=== PATIENT | female | born 1960 | race Caucasian/White ===

== ENCOUNTER 2016-12-20 10:53 | Inpatient (IN) ==
[2016-12-20] MEDS ORDERED: Ondansetron 4 MG/2 ML VIAL IVP ONE (10:55)
[2016-12-20] MEDS ORDERED: 0.9 % Sodium Chloride 1,000 ML IVC ONE ×2 (10:55→12:17)
[2016-12-20] MEDS ORDERED: *HR* HYDROmorphone (PF) 1 MG/ML SYRINGE IVP ONE ×2 (10:55→11:47)
--- NOTE | 2016-12-20 11:05 | Emergency Department Note ---
Disposition Clinical Impression: Large cell neuroendocrine carcinoma, Renal colic, Ureteral stone with hydronephrosis, Intractable pain Disposition: Admitted As Inpatient Condition: Fair Time of Disposition: 13:57 General Adult HPI - General Chief complaint: ED Abdominal Pain Stated complaint: "Pain around R kidney" Time Seen by Provider: 12/20/16 10:55 Source: patient, EMS Mode of arrival: EMS Limitations: no limitations Nursing Notes Reviewed: Yes Vital Signs Reviewed: Yes - History of Present Illness HPI Narrative: 56-year-old female with past medical history of diagnosed colon cancer in for 1 year currently undergoing chemotherapy presents the ED with abdominal pain also right flank pain. States she woke up with this pain all of a sudden. This is worse pain she has ever had. Patient is currently undergoing chemotherapy and sees Dr. Vega. Patient is a little nauseous and has vomited but it was nonbloody nonbilious. When she got up helped her to the commode and noticed there was blood in the commode she said that she had a bowel movement that he only saw a urine and there was blood in there. She is not known to have any bloody urine. She has had no fevers, chest pain, shortness of breath, headaches, blurry vision, pain or tingling going down the arms or legs, pain with urination or pain with defecation. Patient otherwise has no complaints. She had her last CT scan done approximate 2 weeks ago. She is very taken oxycodone and morphine at home and unable to control her pain. Patient otherwise having no complaints. - Related Data Home Medications Medication Instructions Recorded Confirmed DULoxetine [Cymbalta] 30 mg PO DAILY 12/20/16 12/20/16 Levothyroxine [Synthroid] 112 mcg PO DAILY 12/20/16 12/20/16 Morphine Sulfate [Argelia] 1 cap PO DAILY 12/20/16 12/20/16 Oxycodone HCl [Oxycodone HCl ER] 30 mg PO Q3H PRN 12/20/16 12/20/16 Sennosides/Docusate Sodium [Colace 1 tab PO DAILY PRN 12/20/16 12/20/16 2-in-1 Tablet] Allergies Allergy/AdvReac Type Severity Reaction Status Date / Time oxaliplatin Allergy Difficulty Verified 12/20/16 11:10 Breathing Review of Systems: 10 point review of systems done and negative unless otherwise stated in history of present illness. All systems ED: reviewed and negative except as stated. Review of Systems: As Per HPI Past Medical History - Past Medical History Attestation: Yes The following information was validated with the patient. Medical history: Reports: cancer Surgical history: Reports: cholecystectomy, colectomy Psychiatric history: Reports: anxiety - Social History Smoking Status: Never smoker Smokeless Tobacco Status: No Alcohol use: Reports: none Drug use: Reports: none Physical Exam - General Limitations: no limitations General appearance: alert, in no apparent distress - Head Head exam: atraumatic, normocephalic, normal inspection - Eye Eye exam: Present: normal appearance, PERRL, EOMI - ENT ENT exam: normal exam, normal oropharynx, mucous membranes moist - Neck Neck exam: Present: normal inspection, full ROM, trachea midline - Chest Chest inspection: Present: normal inspection, symmetric chest wall rise - Respiratory Respiratory exam: Present: normal lung sounds bilaterally - Cardiovascular Cardiovascular exam: Present: regular rate, normal rhythm, normal heart sounds - Abdominal Exam Abdominal exam: Present: soft, tenderness, normal bowel sounds, mass (Elbow mass on the left side of abdomen. Nonpulsatile). Absent: distention, guarding , rebound, rigidity, trauma, Garcia's sign, Rovsing's sign, tenderness at McBurney's Point, bruit, pulsatile mass, hernia, scar Abdominal tenderness: Present: diffuse, severe - Extremities Exam Extremities exam: Present: normal inspection, full ROM. Absent: tenderness, pedal edema - Expanded Lower Extremity Exam Neurovascular/Tendon exam: Absent: motor deficit, sensory deficit, tendon deficit - Back Exam Back exam: Present: normal inspection, full ROM, CVA tenderness (L). Absent: tenderness - Neurological Exam Neurological exam: Present: alert, oriented X3 - Skin Skin exam: Present: warm, dry, intact, normal color Course Course Narrative: 56-year-old female presents to the ED complaining of abdominal pain and right flank pain. She does have known colon cancer and is currently undergoing chemotherapy. We will treat her pain and nausea with Dilaudid and Zofran. We will get a CT of her abdomen and pelvis without contrast as this could be a kidney stone. We basically lives including CBC, CMP, lipase, lactate. We will give her 1 L of fluids. Patient's THIS plan. - Reevaluation(s) Reevaluation #1: came out saying that her pain is not being controlled after 2 mg of Dilaudid. This time we will change to 50 g of fentanyl to see if that helps with her pain. - Consultations Consultation #1: Spoke with the urologist Dr. Hines who agreed to see the patient he said there is nothing else needed to be done at this time of emergency department. Time: 13:55 Consultation #2: Spoke with the hospitalist Dr. Amaya who agreed to accept the patient to their service. Time: 13:55 Vital Signs Temperature 97.4 F L 12/20/16 11:15 Pulse Rate 84 12/20/16 11:15 Respiratory Rate 18 12/20/16 11:15 Blood Pressure 121/79 12/20/16 11:15 O2 Sat by Pulse Oximetry 97 12/20/16 11:15 Temperature 97.4 F L 12/20/16 11:15 Pulse Rate 88 12/20/16 12:58 Respiratory Rate 20 12/20/16 12:58 Blood Pressure 125/77 12/20/16 12:58 O2 Sat by Pulse Oximetry 99 12/20/16 12:58 Oxygen Delivery Oxygen Delivery Room Air Medical Decision Making - MDM Narrative Medical decision making narrative: 56-year-old female presents to the ED complaining of right flank abdominal pain. Patient does have a history of colon cancer. She does see Dr. Beyer and up at [facility]. She is very taken morphine and oxycodone that she has at home is not controlling the pain. did say he noticed some blood in her urine. At this time when she came in we got basic laboratories were talking back normal except for positive blood in the urine. Erythema is unchanged from her previous labs. We did do a CT angioma of her abdomen and pelvis because of the pain that she was having we are worried about possibly aortic dissection. This came back only showing a right-sided 3 mm ureteral stone. With hydronephrosis. Her cancer was unchanged based on CT. Prior to getting this Read back we had given her 2 mg of Dilaudid and 100 g of fentanyl. This is not controlling her pain. Upon the reading coming back we then tried Toradol to see if that helps with the pain and it did help quite a bit. At this time spoke with the patient on admission she states that she would rather be admitted here she is from the area rather than going up to [facility] as this is an acute renal colic problem. I spoke with the hospitalist who did agree to admit the patient for renal colic and intractable pain. Patient is admitted in stable condition. Her pain is beginning to get under control I did consult with urology and spoke with Dr. Bell who said he would see the patient when she is to the floor. Abdomen/Pelvis CTA 12/20/16 12:13 IMPRESSION: 1. There is moderate right-sided hydronephrosis and hydroureter secondary to an obstructing 3 mm right ureterovesical junction stone which is new. 2. There are multifocal metastatic lesions noted in the lungs, liver, left rectus abdominis muscle, retroperitoneum, presacral soft tissues, left pelvic sidewall, and deep within the pelvis, not appreciably changed. D/ / 12/20/2016 13:18:45 Tejinder Bustos MD / bcarter Interpreting Provider: Tejinder Bustos MD - Medical Records Medical records reviewed: Yes I reviewed the patient's medical records. - Lab Data Lab results reviewed: Yes I reviewed the patient's lab results. Result diagrams: 12/20/16 11:11 12/20/16 11:11 Lab Results 12/20/16 12/20/16 12/20/16 Range/Units 11:11 11:11 11:11 WBC 7.7 (4.3-11.1) K/mcL RBC 4.14 (3.82-4.97) M/mcL Hgb 12.6 (11.5-15.4) g/dL Hct 37.9 (35.3-44.9) % MCV 91.5 (83.0-100.0) fL MCH 30.4 (28.0-33.3) pg MCHC 33.2 (31.6-35.5) g/dL RDW 15.8 H (11.5-14.5) % Plt Count 171 (140-400) K/mcL MPV 9.1 L (9.4-12.4) fL Immature Gran % 0.9 (0-4) % Seg Neutrophils % 59.6 % Lymphocytes % 26.2 % Monocytes % 8.3 % Eosinophils % 4.7 % Basophils % 0.3 % Neutrophils # 4.6 (1.6-8.9) K/mcL Lymphocytes # 2.0 (0.6-4.6) K/mcL Monocytes # 0.6 (0.0-1.3) K/mcL Eosinophils # 0.4 (0.0-0.6) K/mcL Basophils # 0.0 (0.0-0.2) K/mcL Sodium 136 (136-145) mEq/L Potassium 3.4 L (3.5-4.5) mEq/L Chloride 100 (98-109) mEq/L Carbon Dioxide 22 (19-29) mEq/L BUN 12 (7-20) mg/dL Creatinine 1.09 (0.57-1.11) mg/dL Est GFR ( Amer) > 60 (> 60) Est GFR (Non-Af Amer) 52 L (> 60) BUN/Creatinine Ratio 11 (6-26) Glucose 124 H (70-99) mg/dL Calculated Osmolality 283 (280-300) Lactic Acid 3.3 H (0.5-2.2) mmol/L Calcium 9.6 (8.6-10.8) mg/dL Total Bilirubin 0.5 (0.2-1.2) mg/dL Direct Bilirubin 0.3 (0.0-0.5) mg/dL Indirect Bilirubin 0.2 (0.0-1.2) mg/dL AST 48 H (5-34) Units/L ALT 21 (0-55) Units/L Alkaline Phosphatase 140 H (38-126) Units/L Serum Total Protein 7.2 (6.0-8.3) g/dL Albumin 3.3 L (3.5-5.0) g/dL Globulin 3.9 H (2.4-3.5) g/dL Albumin/Globulin Ratio 0.8 L (1.1-2.2) Lipase 37 (8-78) Units/L Urine Color (Yellow) Urine Clarity (Clear) Urine pH (5.0-8.0) pH Units Ur Specific Orchard (1.010-1.025) Urine Protein (Neg-Trace) mg/dL Urine Glucose (UA) (Normal) mg/dL Urine Ketones (Negative) mg/dL Urine Blood (Negative) Urine Nitrite (Negative) Urine Bilirubin (Negative) Urine Urobilinogen (Normal) mg/dL Ur Leukocyte Esterase (Negative) Ur Culture Indicated? (NO) 12/20/16 Range/Units 11:15 WBC (4.3-11.1) K/mcL RBC (3.82-4.97) M/mcL Hgb (11.5-15.4) g/dL Hct (35.3-44.9) % MCV (83.0-100.0) fL MCH (28.0-33.3) pg MCHC (31.6-35.5) g/dL RDW (11.5-14.5) % Plt Count (140-400) K/mcL MPV (9.4-12.4) fL Immature Gran % (0-4) % Seg Neutrophils % % Lymphocytes % % Monocytes % % Eosinophils % % Basophils % % Neutrophils # (1.6-8.9) K/mcL Lymphocytes # (0.6-4.6) K/mcL Monocytes # (0.0-1.3) K/mcL Eosinophils # (0.0-0.6) K/mcL Basophils # (0.0-0.2) K/mcL Sodium (136-145) mEq/L Potassium (3.5-4.5) mEq/L Chloride (98-109) mEq/L Carbon Dioxide (19-29) mEq/L BUN (7-20) mg/dL Creatinine (0.57-1.11) mg/dL Est GFR ( Amer) (> 60) Est GFR (Non-Af Amer) (> 60) BUN/Creatinine Ratio (6-26) Glucose (70-99) mg/dL Calculated Osmolality (280-300) Lactic Acid (0.5-2.2) mmol/L Calcium (8.6-10.8) mg/dL Total Bilirubin (0.2-1.2) mg/dL Direct Bilirubin (0.0-0.5) mg/dL Indirect Bilirubin (0.0-1.2) mg/dL AST (5-34) Units/L ALT (0-55) Units/L Alkaline Phosphatase (38-126) Units/L Serum Total Protein (6.0-8.3) g/dL Albumin (3.5-5.0) g/dL Globulin (2.4-3.5) g/dL Albumin/Globulin Ratio (1.1-2.2) Lipase (8-78) Units/L Urine Color Yellow (Yellow) Urine Clarity Clear (Clear) Urine pH 7.5 (5.0-8.0) pH Units Ur Specific Orchard 1.016 (1.010-1.025) Urine Protein Negative (Neg-Trace) mg/dL Urine Glucose (UA) Normal (Normal) mg/dL Urine Ketones Trace H (Negative) mg/dL Urine Blood Negative (Negative) Urine Nitrite Negative (Negative) Urine Bilirubin Negative (Negative) Urine Urobilinogen Normal (Normal) mg/dL Ur Leukocyte Esterase Negative (Negative) Ur Culture Indicated? NO (NO) - Radiology Data Radiology results reviewed: Yes I reviewed the patient's radiology results. Attestation Statement - Attestation Attestation: I examined this patient and my medical decision-making was reviewed with the Resident Physician, Dr. Muse. I agree with the documented findings, disposition and treatment plan as described except to the extent set forth below. Patient is 56-year-old white female with history of metastatic colon CA is been undergoing chemotherapy for approximately the past year, receiving oncology care from [facility]. Patient awoke this morning with sudden onset of right flank pain and right-sided abdominal pain with nausea vomiting. Patient was reporting sharp intense pain at the onset, associated with reported as blood in the urine. Patient denies any fevers or chills, no dysuria or difficulty urinating. Patient arrives hemodynamically stable with severe right flank pain. I agree with the patient's physical exam findings as documented. Patient was placed on a cardiac tech, continuous pulse ox, labs were drawn and sent as well as urinalysis and patient underwent CT scanning with contrast due to acute onset and pain and known metastatic disease. Patient with blood in the urine on urinalysis without infection. Patient on CT with a known kidney stone with moderate [place] the right kidney. On prior CT imaging her stone was within the kidney but she is currently passing at at this time. I discussed the results with family and recommended admission for pain control and patient requests to stay here to D not since she is not having any complications with her known metastatic disease. The hospitalist who accepted the patient for admission and urology, Dr. Mateo Hassan was consulate from the ED as well.
[2016-12-20 11:21] LABS: Basophils % 0.3 %; Eosinophils # 0.4 K/mcL (0.0-0.6); Eosinophils % 4.7 %; Hematocrit 37.9 % (35.3-44.9); Hemoglobin 12.6 g/dL (11.5-15.4); Immature Granulocytes % 0.9 % (0-4); Lymphocytes % 26.2 %; Mean Corpuscular HGB Conc 33.2 g/dL (31.6-35.5); Mean Corpuscular Hemoglobin 30.4 pg (28.0-33.3); Mean Corpuscular Volume 91.5 fL (83.0-100.0); Mean Platelet Volume 9.1 fL (9.4-12.4); Monocytes # 0.6 K/mcL (0.0-1.3); Monocytes % 8.3 %; Neutrophils # 4.6 K/mcL (1.6-8.9); Platelet Count 171 K/mcL (140-400); Red Blood Count 4.14 M/mcL (3.82-4.97); Red Cell Distribution Width 15.8 % (11.5-14.5); Segmented Neutrophils % 59.6 %
[2016-12-20 11:27] LABS: Bilirubin,Urine Negative (Negative); Blood,Urine Negative (Negative); Clarity,Urine Clear (Clear); Color,Urine Yellow (Yellow); Glucose,Urine (UA) Normal (Normal); Ketones,Urine Trace mg/dL (Negative); Leukocyte Esterase,Urine Negative (Negative); Nitrite,Urine Negative (Negative); PH,Urine 7.5 pH Units (5.0-8.0); Protein,Urine Negative (Neg-Trace); Specific Gravity,Urine 1.016 (1.010-1.025); Urobilinogen,Urine Normal (Normal)
[2016-12-20 11:34] LABS: Alanine Aminotransferase 21 Units/L (0-55); Albumin 3.3 g/dL (3.5-5.0); Albumin/Globulin Ratio 0.8 (1.1-2.2); Alkaline Phosphatase 140 Units/L (38-126); Aspartate Amino Transferase 48 Units/L (5-34); BUN/Creatinine Ratio 11 (6-26); Bilirubin,Direct 0.3 mg/dL (0.0-0.5); Bilirubin,Indirect 0.2 mg/dL (0.0-1.2); Bilirubin,Total 0.5 mg/dL (0.2-1.2); Blood Urea Nitrogen 12 mg/dL (7-20); Calcium 9.6 mg/dL (8.6-10.8); Carbon Dioxide 22 mEq/L (19-29); Chloride 100 mEq/L (98-109); Globulin 3.9 g/dL (2.4-3.5); Glucose 124 mg/dL (70-99); Lipase 37 Units/L (8-78); Osmolality,Calculated 283 (280-300); Potassium 3.4 mEq/L (3.5-4.5); Sodium 136 mEq/L (136-145); Total Protein 7.2 g/dL (6.0-8.3); eGFR For African Americans > 60 (> 60); eGFR For Non-African Americans 52 (> 60)
[2016-12-20] MEDS ORDERED: *HR* HYDROmorphone (PF) 1 MG/ML SYRINGE ONE (11:35)
[2016-12-20] MEDS ORDERED: *HR* FentaNYL (PF) 100 MCG/2 ML VIAL IVP ONE ×2 (11:46→12:43)
[2016-12-20] MEDS ORDERED: *HR* FentaNYL (PF) 100 MCG/2 ML VIAL ONE (12:43)
[2016-12-20] MEDS ORDERED: Ketorolac 30 MG/ML VIAL IVP ONE (13:12)
--- NOTE | 2016-12-20 14:11 | Urology - Consult Note ---
Date of Encounter: 12/20/16 Time of Encounter: 14:08 - Assessment and Plan (1) Ureteral stone with hydronephrosis Current Visit: Yes Status: Acute Assessment and plan: Patient be brought in for observation through hospitalist service. Continue with IV fluids. Hopeful medical expulsion therapy tonight. NUTRITION MANAGER after midnight for possible stone extraction tomorrow. Urology CN:HPI Consult date: 12/20/16 Reason for consult Urology: Other (right ureteral stone) Requesting physician: Francisco Muse History of present illness: Merle is a 56-year-old female with a history of metastatic cancer currently undergoing chemotherapy at [facility]. Patient presents today secondary to severe right-sided flank pain and was found to have a distal [address] scan. Patient has multiple metastatic lesions throughout her abdomen. Patient's pain is currently okay controlled with IV pain medicine. Past Med Surg Social Fam HX - Past Medical History Medical history: cancer Psychiatric history: anxiety - Past Surgical History Surgical History: cholecystectomy, colectomy - Social History Smoking Status: Never smoker Smokeless Tobacco Status: No Alcohol use: none Drug use: none Medications and Allergies Loperamide [Imodium] 2 mg PO AD PRN #60 capsule 01/04/16 [Rx] Prochlorperazine Maleate [Compazine] 10 mg PO Q6HR PRN #60 tablet 01/04/16 [Rx] Capecitabine [Xeloda] 1,500 mg PO AD #84 tablet 01/11/16 [Rx] Lidocaine/Prilocaine CREAM [Emla] 1 appl TP AD #1 tube 01/25/16 [Rx] Ondansetron [Zofran] 8 mg PO Q8HR PRN #45 tablet 01/25/16 [Rx] Oxycodone HCl/Acetaminophen [Percocet 5-325 mg Tablet] 1 each PO Q6H PRN #30 tablet 01/25/16 [Rx] Dexamethasone [Decadron] 4 mg PO DAILY #2 tab 02/08/16 [Rx] Ibuprofen [Motrin] 200 mg PO AD PRN 02/29/16 [History] Cyclobenzaprine [Flexeril] 5 mg PO HS #3 tablet 09/23/16 [Rx] Diclofenac Potassium 50 mg PO TID PRN #20 tablet 09/23/16 [Rx] PredniSONE [Aimee] 5 mg PO DAILY 6 Days tablet. 09/23/16 [Rx] 3 Allergy/AdvReac Type Severity Reaction Status Date / Time oxaliplatin Allergy Difficulty Verified 12/20/16 11:10 Breathing Review of Systems - Constitutional no chills - EENT Nose, mouth and throat: no dizziness - Cardiovascular no chest pain - Respiratory no cough - Gastrointestinal abdominal pain Exam Initial Vital Signs Temp Pulse Resp BP Pulse Ox 97.4 F L 84 18 121/79 97 12/20/16 11:15 12/20/16 11:15 12/20/16 11:15 12/20/16 11:15 12/20/16 11:15 - General physical appearance Present: well developed - Respiratory Present: normal respiratory effort - Cardiovascular Cardiovascular exam IM: RRR - Abdomen Abdomen: Present: soft Urology Results - Labs 12/20/16 11:11 12/20/16 11:11 Abnormal lab results RDW 15.8 % (11.5-14.5) H 12/20/16 11:11 MPV 9.1 fL (9.4-12.4) L 12/20/16 11:11 Potassium 3.4 mEq/L (3.5-4.5) L 12/20/16 11:11 Est GFR (Non-Af Amer) 52 (> 60) L 12/20/16 11:11 Glucose 124 mg/dL (70-99) H 12/20/16 11:11 Lactic Acid 3.3 mmol/L (0.5-2.2) H 12/20/16 11:11 AST 48 Units/L (5-34) H 12/20/16 11:11 Alkaline Phosphatase 140 Units/L (38-126) H 12/20/16 11:11 Albumin 3.3 g/dL (3.5-5.0) L 12/20/16 11:11 Globulin 3.9 g/dL (2.4-3.5) H 12/20/16 11:11 Albumin/Globulin Ratio 0.8 (1.1-2.2) L 12/20/16 11:11 Urine Ketones Trace mg/dL (Negative) H 12/20/16 11:15 Diabetes panel 12/20/16 Range/Units 11:11 Sodium 136 (136-145) mEq/L Potassium 3.4 L (3.5-4.5) mEq/L Chloride 100 (98-109) mEq/L Carbon Dioxide 22 (19-29) mEq/L BUN 12 (7-20) mg/dL Creatinine 1.09 (0.57-1.11) mg/dL Glucose 124 H (70-99) mg/dL Calcium 9.6 (8.6-10.8) mg/dL AST 48 H (5-34) Units/L ALT 21 (0-55) Units/L Alkaline Phosphatase 140 H (38-126) Units/L Albumin 3.3 L (3.5-5.0) g/dL Calcium panel 12/20/16 Range/Units 11:11 Calcium 9.6 (8.6-10.8) mg/dL Albumin 3.3 L (3.5-5.0) g/dL Pituitary panel 12/20/16 Range/Units 11:11 Sodium 136 (136-145) mEq/L Potassium 3.4 L (3.5-4.5) mEq/L Chloride 100 (98-109) mEq/L Carbon Dioxide 22 (19-29) mEq/L BUN 12 (7-20) mg/dL Creatinine 1.09 (0.57-1.11) mg/dL Glucose 124 H (70-99) mg/dL Calcium 9.6 (8.6-10.8) mg/dL Adrenal panel 12/20/16 Range/Units 11:11 Sodium 136 (136-145) mEq/L Potassium 3.4 L (3.5-4.5) mEq/L Chloride 100 (98-109) mEq/L Carbon Dioxide 22 (19-29) mEq/L BUN 12 (7-20) mg/dL Creatinine 1.09 (0.57-1.11) mg/dL Glucose 124 H (70-99) mg/dL Calcium 9.6 (8.6-10.8) mg/dL Total Bilirubin 0.5 (0.2-1.2) mg/dL AST 48 H (5-34) Units/L ALT 21 (0-55) Units/L Alkaline Phosphatase 140 H (38-126) Units/L Albumin 3.3 L (3.5-5.0) g/dL All other labs normal. - Imaging CT scan - abdomen: image reviewed CT scan - pelvis: image reviewed Consult Discharge Plan - Plan Referrals: Estephania Gracia, MIAH [Primary Care Provider] -
[2016-12-20] MEDS ORDERED: Naloxone 0.4 MG/ML INJ IVP PRN (14:45)
[2016-12-20] MEDS ORDERED: *HR* HYDROmorphone (PF) 1 MG/ML SYRINGE IVP PRN (14:45)
[2016-12-20] MEDS ORDERED: Ondansetron 4 MG/2 ML VIAL IVP PRN (14:45)
--- NOTE | 2016-12-20 15:16 | Internal Med History&Physical ---
<Joss Amaya P - Last Filed: 12/20/16 18:51> Date of Encounter: 12/20/16 Internal Medicine - H&P: HPI History of present illness: Ms. Michelle is a 56 year old female Internal Medicine - H&P: Meds DULoxetine [Cymbalta] 30 mg PO DAILY 12/20/16 [History] Levothyroxine [Synthroid] 112 mcg PO DAILY 12/20/16 [History] Morphine Sulfate [Argelia] 1 cap PO DAILY 12/20/16 [History] Oxycodone HCl [Oxycodone HCl ER] 30 mg PO Q3H PRN 12/20/16 [History] Sennosides/Docusate Sodium [Colace 2-in-1 Tablet] 1 tab PO DAILY PRN 12/20/16 [ History] 3 Allergy/AdvReac Type Severity Reaction Status Date / Time oxaliplatin Allergy Difficulty Verified 12/20/16 11:10 Breathing All Systems PM: A 10-system review of systems was performed and is negative for pertinent findings except as documented above in the HPI. - Constitutional Vitals: Temp Pulse Resp BP Pulse Ox 98.3 F 88 15 105/70 95 12/20/16 17:37 12/20/16 17:37 12/20/16 17:37 12/20/16 17:37 12/20/16 17:37 Internal Med - H&P Results - Labs CBC & Chem 7: 12/20/16 11:11 12/20/16 11:11 - Attending Attestation I examined this patient and my medical decision-making was reviewed with the Resident Physician. I agree with the documented findings, disposition and treatment plan as described except to the extent set forth below. <Sully Harris L - Last Filed: 12/20/16 19:05> Date of Encounter: 12/20/16 Time of Encounter: 15:12 Assessment and Plan (1) Ureteral stone with hydronephrosis Current visit: Yes Status: Acute 1 patient was awakened with sudden onset of right sided flank pain radiating to the suprapubic area. CT of abdomen did show a moderate right-sided hydronephrosis and hydroureter secondary to an obstructing 3 mm right UVJ stone. Urology has been consulted 2 we will continue with IV fluids overnight 3 we will continue with Dilaudid as well as Toradol for pain and Zofran for nausea 4 patient will be nothing by mouth after midnight for any surgical intervention in a.m. (2) Colon cancer metastasized to multiple sites Current visit: Yes Status: Acute 1 patient history of colon cancer and is being treated at the [facility] per Dr. Crane. She is receiving chemotherapy last treatment was December 08. CT of abdomen today revealed multiple multifocal metastatic lesions throughout the abdomen. Patient is scheduled to receive chemotherapy next week we will continue with treatment as outpatient and consult oncology as needed (3) Hypothyroid Current visit: No Status: Chronic continue with synthroid Qualifiers: Hypothyroidism type: unspecified Qualified Code(s): E03.9 - Hypothyroidism , unspecified (4) Vagina bleeding Current visit: Yes Status: Acute 1 patient states that she has been experiencing vaginal bleeding, spotting. She did have some this am prior to coming to the ED. I did speak with [employer] Elva Kelly who advised as long as patient is not heavy bleeding to have her follow up with oncology at the [facility] . Presently not bleeding. We will have her follow up with oncology. (5) DVT prophylaxis Current visit: Yes Status: Acute 1 SCD Internal Medicine - H&P: HPI Chief complaint: R flank pain Admitted From: Emergency Dept Plans for Post Hospital Care: Home History of present illness: Ms. Michelle is a 56 year old female past medical history of hypothyroid colon cancer receiving chemotherapy treatment at the [facility] per Dr. Barnett. Patient has been receiving chemotherapy for approximately one year. Her last treatment was December 08 According to the patient she was in her normal state of health when she awoke this morning and experienced sudden onset of right flank pain. Which she described as sharp radiating to her right abdomen. She did have some nausea and vomiting. She denies any difficulty in urinating hematuria or dysuria. She denies any fevers or chills. She did take her scheduled morphine and oxycodone without any relief of her pain. She did present to the ER with the above complaints. CT of abdomen revealed moderate right-sided hydronephrosis and hydroureter secondary to obstructing 3 mm stone right UVJ. As well as several multifocal metastatic lesions throughout the abdomen. Lab work did reveal hypokalemia. Urology was consulted. She has been admitted for further work up evaluation. Presently patient does not appear to be any pain or discomfort. She is hemodialysis stable this time. Past Med Surg Social Fam HX - Past Medical History Medical history: cancer Psychiatric history: anxiety - Past Surgical History Surgical History: cholecystectomy, colectomy - Social History Smoking Status: Never smoker Smokeless Tobacco Status: No Alcohol use: none Drug use: none - Family History Father Living Status: Cause of : bladder cancer All Systems PM: A 10-system review of systems was performed and is negative for pertinent findings except as documented above in the HPI. - Constitutional Constitutional: no chills, no fever(s), no night sweats - EENT Eyes: no change in vision, no discharge, no pain, no photophobia Nose, mouth and throat: no dysphagia, no nasal discharge, no neck pain, no sore throat - Cardiovascular Cardiovascular ROS IM: no chest pain, no diaphoresis, no dyspnea, no lightheadedness, no palpitations, no syncope - Respiratory Respiratory: no cough, no dyspnea, no wheezing, no excessive phlegm production - Gastrointestinal Gastrointestinal: abdominal pain, nausea, vomiting, no diarrhea, no hematemesis , no hematochezia, no melena - Musculoskeletal Musculoskeletal ROS IM: back pain, no numbness, no tingling - Integumentary Integumentary IM: no rash, no unusual bruising - Neurological Neurological ROS: no confusion, no convulsions, no focal weakness, no numbness, no tingling, no tremor(s) - Constitutional Vitals: Temp Pulse Resp BP Pulse Ox 97.4 F L 88 20 125/77 99 12/20/16 11:15 12/20/16 12:58 12/20/16 12:58 12/20/16 12:58 12/20/16 12:58 General appearance: Present: A&O X 3, answers questions appropriately - Head Head exam: Present: atraumatic, normocephalic - Eye Eye exam: Present: PERRL, conjuntiva pink, sclera anicteric Pupils: Present: PERRL - Neck Neck exam general surgery: Present: supple, trachea midline. Absent: lymphadenopathy - Respiratory Respiratory exam: Present: CTAB. Absent: accessory muscle use, rales, rhonchi, wheezes - Cardiovascular Cardiovascular exam: Present: RRR, +S1, +S2. Absent: diastolic murmur, gallop, rubs, systolic murmur - GI/Abdominal GI/Abdominal exam: Present: normal bowel sounds, soft, no peritoneal signs. Absent: distended, tenderness - Extremities Exam Extremities exam: Present: warm, radial pulses palpable and symmetrical. Absent : calf tenderness, cyanotic, pedal edema - Back Exam Back exam: Present: CVA tenderness (R) - Neurological Exam Neurological exam: Present: CN II-XII intact, oriented X3, no focal deficits. Absent: pronater drift, facial droop, speech deficit - Skin Skin exam: Present: dry, intact Internal Med - H&P Results - Labs CBC & Chem 7: 12/20/16 11:11 12/20/16 11:11 - Diagnostic Studies Other Images Additional comments: Abdomen/Pelvis CTA 12/20/16 12:13 IMPRESSION: 1. There is moderate right-sided hydronephrosis and hydroureter secondary to an obstructing 3 mm right ureterovesical junction stone which is new. 2. There are multifocal metastatic lesions noted in the lungs, liver, left rectus abdominis muscle, retroperitoneum, presacral soft tissues, left pelvic sidewall, and deep within the pelvis, not appreciably changed. D/ / 12/20/2016 13:18:45 Tejinder Bustos MD / bcarter Interpreting Provider: Tejinder Bustos MD
[2016-12-20] MEDS: 0.9 % Sodium Chloride 1,000 ML IVC SCH (18:00)
--- NOTE | 2016-12-20 20:17 | Anesthesia Evaluation PreOp ---
Date of Encounter: 12/20/16 Time of Encounter: 20:15 - Past History Planned Operation: Right USE Cardiac History: Denies any Significant Hx Pulmonary History: Denies Any Significant HX MUSHROOM CUTTER History: Denies Any Significant HX Other Medical History: Thyroid (Hypothyroid), Other (Recurrent Colon CA - undergoing chemo) Anesthesia History: No Prior Anesthetic Complications, Past Anesthesia (Bowel resection, GB) : No Alcohol Use: none Drug use: none Medications and Allergies DULoxetine [Cymbalta] 30 mg PO DAILY 12/20/16 [History] Levothyroxine [Synthroid] 112 mcg PO DAILY 12/20/16 [History] Morphine Sulfate [Argelia] 1 cap PO DAILY 12/20/16 [History] Oxycodone HCl [Oxycodone HCl ER] 30 mg PO Q3H PRN 12/20/16 [History] Sennosides/Docusate Sodium [Colace 2-in-1 Tablet] 1 tab PO DAILY PRN 12/20/16 [ History] 3 Allergy/AdvReac Type Severity Reaction Status Date / Time oxaliplatin Allergy Difficulty Verified 12/20/16 11:10 Breathing - Meds/Allergy Pre-op Review Medications Reviewed: Yes Allergies Reviewed: Yes Beta Blockers on Current Med List: No Anesthesia Results - Labs 12/20/16 11:11 12/20/16 11:11 - Imaging EKG: image reviewed (SINUS BRADYCARDIA NONSPECIFIC T-WAVE ABNORMALITY) Anesthesia Exam O2 Sat Height 1.63 m Weight 66.224 kg O2 Sat by Pulse Oximetry 98 O2 Sat by Pulse Oximetry 95 O2 Sat by Pulse Oximetry 99 O2 Sat by Pulse Oximetry 98 O2 Sat by Pulse Oximetry 97 Vital Signs Temp Pulse Resp BP Pulse Ox 97.4 F L 84 18 121/79 97 12/20/16 11:15 12/20/16 11:15 12/20/16 11:15 12/20/16 11:15 12/20/16 11:15 Vital Signs/O2 Sat, Most Current Temp Pulse Resp BP Pulse Ox 97.4 F L 93 15 107/71 98 12/20/16 19:30 12/20/16 19:30 12/20/16 19:30 12/20/16 19:30 12/20/16 19:30 Height: 5'4'' Weight: 146# NPO (# of Hours): > 8 hrs Pain Scale: 0 Pain Scale Used: Numeric (1 - 10) - HEENT Pupil (Motor): Pupils equal, EOMI Mallampati: II Teeth: Normal Oral Opening: Greater than 3 - MUSHROOM CUTTER LOC: Oriented MUSHROOM CUTTER Motor: Normal RUE, Normal LUE, Normal RLE, Normal LLE, Normal Face MUSHROOM CUTTER Sensory: Normal: RUE, LUE, RLE, LLE, Face - Cardiac Rhythm: Regular Murmur: None JVD: No Carotid Bruit: No - Pulmonary Breath Sounds: bilateral Clear Respiratory Effort: Symmetrical Anesthesia Assess/Plan ASA Score: 2 Modified Meri Scale for Level of Consciousness: Cooperative, oriented, and tranquil Anesthetic Plan: General Autologous Blood: Yes Monitoring Plan: Standard Monitors Recovery Plan: PACU
[2016-12-20] MEDS: Ketorolac 30 MG/ML VIAL IVP PRN (20:26)
[2016-12-20] MEDS: *HR* Morphine Sulfate SR (12 HR) 30 MG TABLET.ER PO SCH (21:58)
[2016-12-21] MEDS: *HR* HYDROmorphone (PF) 1 MG/ML SYRINGE IVP PRN ×2 (00:15→06:22)
[2016-12-21] MEDS: Ketorolac 30 MG/ML VIAL IVP PRN ×2 (02:19→12:28)
[2016-12-21] MEDS: 0.9 % Sodium Chloride 1,000 ML IVC SCH (02:21)
[2016-12-21 05:08] LABS: Basophils % 0.5 %; Eosinophils # 0.6 K/mcL (0.0-0.6); Eosinophils % 9.2 %; Hematocrit 31.6 % (35.3-44.9); Immature Granulocytes % 0.7 % (0-4); Lymphocytes # 1.6 K/mcL (0.6-4.6); Lymphocytes % 27.1 %; Mean Corpuscular HGB Conc 32.6 g/dL (31.6-35.5); Mean Corpuscular Hemoglobin 30.4 pg (28.0-33.3); Mean Corpuscular Volume 93.2 fL (83.0-100.0); Mean Platelet Volume 9.4 fL (9.4-12.4); Monocytes # 0.6 K/mcL (0.0-1.3); Monocytes % 10.2 %; Neutrophils # 3.1 K/mcL (1.6-8.9); Platelet Count 126 K/mcL (140-400); Red Blood Count 3.39 M/mcL (3.82-4.97); Red Cell Distribution Width 16.1 % (11.5-14.5); Segmented Neutrophils % 52.3 %
[2016-12-21 05:09] LABS: Hemoglobin 10.3 g/dL (11.5-15.4)
[2016-12-21 05:26] LABS: BUN/Creatinine Ratio 11 (6-26); Blood Urea Nitrogen 8 mg/dL (7-20); Carbon Dioxide 20 mEq/L (19-29); Chloride 112 mEq/L (98-109); Glucose 75 mg/dL (70-99); Osmolality,Calculated 287 (280-300); Potassium 3.3 mEq/L (3.5-4.5); Sodium 140 mEq/L (136-145); eGFR For African Americans > 60 (> 60); eGFR For Non-African Americans > 60 (> 60)
[2016-12-21 05:27] LABS: Calcium 7.9 mg/dL (8.6-10.8)
--- NOTE | 2016-12-21 07:20 | Urology Progress Note ---
Date of Encounter: 12/21/16 Time of Encounter: 07:18 - Assessment and Plan (1) Ureteral stone with hydronephrosis Current Visit: Yes Status: Acute Assessment and plan: to or today for stone extraction. Progress Note Narrative: patient seen. no fluids running this am. has not passed stone. Objective Initial Vital Signs Temp Pulse Resp BP Pulse Ox 97.4 F L 84 18 121/79 97 12/20/16 11:15 12/20/16 11:15 12/20/16 11:15 12/20/16 11:15 12/20/16 11:15 - General physical appearance Present: no pain - Respiratory Present: clear to auscultation - Abdomen Present: soft - Labs 12/21/16 04:33 12/21/16 04:33 Diabetes panel 12/21/16 Range/Units 04:33 Sodium 140 (136-145) mEq/L Potassium 3.3 L (3.5-4.5) mEq/L Chloride 112 H (98-109) mEq/L Carbon Dioxide 20 (19-29) mEq/L BUN 8 (7-20) mg/dL Creatinine 0.75 (0.57-1.11) mg/dL Glucose 75 (70-99) mg/dL Calcium 7.9 L D (8.6-10.8) mg/dL Calcium panel 12/21/16 Range/Units 04:33 Calcium 7.9 L D (8.6-10.8) mg/dL Pituitary panel 12/21/16 Range/Units 04:33 Sodium 140 (136-145) mEq/L Potassium 3.3 L (3.5-4.5) mEq/L Chloride 112 H (98-109) mEq/L Carbon Dioxide 20 (19-29) mEq/L BUN 8 (7-20) mg/dL Creatinine 0.75 (0.57-1.11) mg/dL Glucose 75 (70-99) mg/dL Calcium 7.9 L D (8.6-10.8) mg/dL Adrenal panel 12/21/16 Range/Units 04:33 Sodium 140 (136-145) mEq/L Potassium 3.3 L (3.5-4.5) mEq/L Chloride 112 H (98-109) mEq/L Carbon Dioxide 20 (19-29) mEq/L BUN 8 (7-20) mg/dL Creatinine 0.75 (0.57-1.11) mg/dL Glucose 75 (70-99) mg/dL Calcium 7.9 L D (8.6-10.8) mg/dL Consult Discharge Plan - Plan Referrals: Ayden Hines MD [Partnered Physician] -
[2016-12-21] MEDS ORDERED: 0.9 % Sodium Chloride 1,000 ML IVC SCH ×2 (07:30→17:02)
[2016-12-21] MEDS: *HR* Morphine Sulfate SR (12 HR) 30 MG TABLET.ER PO SCH (08:32)
[2016-12-21] MEDS ORDERED: Lidocaine -MPF 2% 2 ML VIAL ONE (15:30)
[2016-12-21] MEDS ORDERED: Ondansetron 4 MG/2 ML VIAL ONE (15:30)
[2016-12-21] MEDS ORDERED: *HR* FentaNYL (PF) 100 MCG/2 ML VIAL ONE (15:30)
[2016-12-21] MEDS ORDERED: *HR* Propofol 200 MG/20 ML VIAL IVP ONE (15:30)
[2016-12-21] MEDS ORDERED: *HR* Labetalol 20 MG/4 ML SYRINGE IVP PRN (15:37)
[2016-12-21] MEDS ORDERED: *HR* Promethazine 25 MG/ML VIAL IVP PRN (15:37)
[2016-12-21] MEDS ORDERED: *HR* HYDROmorphone (PF) 1 MG/ML SYRINGE IVP PRN ×2 (15:37→17:02)
[2016-12-21] MEDS ORDERED: ceFAZolin 2,000 MG in Water for inj. (sterile) 20 ML IVP ONE (15:45)
--- NOTE | 2016-12-21 15:55 | Operative Note ---
Date of procedure: 12/21/16 Pre-op diagnosis: right distal ureteral stone Post-op diagnosis: other (stone in bladder) Procedure: Right ureteroscopy Anesthesia: MADISYN Surgeon: Ayden Hines Specimen: right ureteral stone Condition: stable Disposition: PACU Procedure in Detail: Patient was prepped and draped in normal sterile fashion. Timeout procedure performed. I then inserted the semirigid ureteroscope into the patient's bladder. No bladder lesions were seen but I did note a small stone in the posterior aspect of the bladder. I was then able to place a cystoscope in the bladder and cannulate the right ureteral orifice using a sensor wire. Over this wire was able to advance the ureteroscope into the right ureter. No further stones were seen. The stone within bladder was then removed.
--- NOTE | 2016-12-21 15:56 | Event Note ---
Date of Encounter: 12/21/16 Time of Encounter: 15:55 Patient is ok to dc home tonight with urology. F/u in 3-4 weeks as possible depending on chemo.
--- NOTE | 2016-12-21 16:14 | Anesthesia Evaluation Post Op ---
Date of Encounter: 12/21/16 Time of Encounter: 16:13 - Vital Signs Vital Signs: Selected Entries 12/21/16 15:56 Temperature 97.9 F Pulse Rate 98 Respiratory Rate 16 Blood Pressure 110/80 O2 Sat by Pulse Oximetry 96 - Lungs Lungs: Clear Ascult./Percussion - Airway Airway: Non-obstructed - Cardiovascular Regular Rate - Mental Status Mental Status: Alert & Oriented, Answers Appropriately - Pain Pain Scale: 0 Pain Scale used: Numeric (1 - 10) - Nausea Vomiting Nausea Vomiting: Not Present - Hydration Hydration: Ice chips, Has not voided - Discharge PostOp Status: Transfer Patient to floor
[2016-12-21] MEDS ORDERED: Ondansetron 4 MG/2 ML VIAL IVP PRN (17:02)
[2016-12-21] MEDS ORDERED: Ketorolac 30 MG/ML VIAL IVP PRN (17:02)
[2016-12-21] MEDS ORDERED: Naloxone 0.4 MG/ML INJ IVP PRN (17:02)
[2016-12-21 17:31] VITALS: BP 122/84
--- NOTE | 2016-12-21 17:40 | Discharge Summary ---
Date of Encounter: 12/21/16 Time of Encounter: 17:38 - Discharge Diagnosis (1) Ureteral stone with hydronephrosis Priority: Primary Status: Acute (2) Colon cancer metastasized to multiple sites Priority: Secondary Status: Acute - Discharge Medications Home Medications: DULoxetine [Cymbalta] 30 mg PO DAILY 12/20/16 [History] Levothyroxine [Synthroid] 112 mcg PO DAILY 12/20/16 [History] Sennosides/Docusate Sodium [Colace 2-in-1 Tablet] 1 tab PO DAILY PRN 12/20/16 [ History] Morphine Sulfate SR (12 HR) [MS Contin] 1 tab PO Q12HR 12/21/16 [History] OxyCODONE Immed Rel [Roxicodone 15 MG] 30 mg PO Q3H PRN 12/21/16 [History] Allergies/Adverse Reactions: 3 Allergy/AdvReac Type Severity Reaction Status Date / Time oxaliplatin Allergy Difficulty Verified 12/20/16 11:10 Breathing Date of admission: 12/20/16 17:45 Primary care physician: Estephania Gracia, Discharging clinician: Kaleigh Edwards - Patient Status Disposition: Home, Self-Care Condition: Fair Functional capacity at discharge: independent ambulation Overall status at discharge: patient is progressing back to baseline - Discharge Instructions Follow Up With: Ayden Hines MD [Partnered Physician] - - Diet and Activity Activity: increase activity as tolerated Diet: advance to your usual diet Hospital course: Merle is a 56-year-old female with a history of metastatic cancer currently undergoing chemotherapy at [facility]. Patient presents today secondary to severe right-sided flank pain and was found to have a distal [address] scan. Patient has multiple metastatic lesions throughout her abdomen. She was hydrated with IV fluids overnight. Given Toradol and Dilaudid prn pain, with Zofran for nausea. On 12/21 she had right ureteroscopy done. There was no bladder lesions/stones in ureter but there was one noted in the bladder and it was removed. She was discharged home in stable condition to follow-up with Urology in 3-4 weeks. - Time Spent with Patient Total time spent providing and/or coordinating discharge services: - Constitutional Vitals: Temp Pulse Resp BP Pulse Ox 97.9 F 89 14 122/84 97 12/21/16 17:13 12/21/16 17:13 12/21/16 17:13 12/21/16 17:13 12/21/16 17:13 General appearance: Present: A&O X 3, answers questions appropriately Exam: CVS: RRR, no mrg Lungs: CTAB Abd: Soft, NT/ND, + BS Ext: no edema - VTE Documentation of Mechanical Device: Intermittent pneumatic compression device
[2016-12-21] MEDS ORDERED: *HR* Morphine Sulfate SR (12 HR) 30 MG TABLET.ER PO SCH (21:00)
== END 2016-12-21 18:40 | disposition home or self-care (01) | DRG 694 ==
LOC: 3ANU 10:53 → EMEROO 10:53 → 3ANU 15:28
PROVIDERS: ADMIT Nurse Practitioner Acute Care; ATTEND Student in an Organized Health Care Education/Training Program